=== PATIENT | female | born 1970 | race Caucasian/White ===

== ENCOUNTER 2023-02-01 16:35 | Outpatient (CLI) | payer MEDICAID, SELFPAY | END 2023-02-01 16:36 | disposition home or self-care (01) | LOC: AMB 02-02 16:14 | PROVIDERS: Visit Provider Family Medicine | DX: F29 Unspecified psychosis not due to a substance or known physiological condition (principal); M54.50 Low back pain, unspecified | CPT/HCPCS: A0425; A0428 ==